=== PATIENT | male | born 1965 | race Caucasian/White ===

== ENCOUNTER 2017-07-25 13:41 | Emergency (ER) | payer SELFPAY ==
[2017-07-25] MEDS ORDERED: HYDROmorphONE/DILAUDID 1 MG/ML INJ IVP ONE ×3 (15:20→17:58)
[2017-07-25] MEDS ORDERED: ONDANSETRON 4 MG/2 ML VIAL IVP ONE (15:20)
[2017-07-25] MEDS ORDERED: NS 1,000 ML IV ONE (15:20)
--- NOTE | 2017-07-25 15:25 | EDPHY ---
H & P Stated Complaint: abdominal pain N/V/D Time Seen by Provider: 07/25/17 14:58 HPI/ROS: CHIEF COMPLAINT: Abdominal pain HISTORY OF PRESENT ILLNESS: This is a 51-year-old male visiting [place]. He has a history of diverticulitis and is status post partial colectomy. He presents today with 24 hours of left lower quadrant crampy abdominal pain, distention, vomiting, and diarrhea. He has not seen blood in his stool. All of this is consistent with his previous bouts of diverticulitis. His last bout was a few months ago. He is typically treated with ciprofloxacin and Flagyl orally, once he has the pain and vomiting under control. He denies recent fever. No new urinary symptoms but he reports long-standing difficulty initiating his urinary stream. REVIEW OF SYSTEMS: A ten point review of systems was performed and is negative with the exception of the items mentioned in the HPI. Past medical history: 1. Diabetes mellitus type 2 on insulin 2. Depression 3. Diverticulitis Past surgical history: 1. Partial colectomy 2. Left knee replacement 3. Achilles tendon repair 4. Cholecystectomy Social history: He lives in [place]. 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 He does not use tobacco, alcohol, or illicit drugs. General Appearance: Alert. Vital signs reviewed. Blood pressure 163/115. Eyes: Pupils equal and round, no conjunctival injection, no discharge. Anicteric. ENT, Mouth: Mucous membranes are slightly dry, no oropharyngeal erythema or edema. Neck: No lymphadenopathy, supple. Respiratory: Lungs are clear to auscultation; no wheezes, rales, or rhonchi. Cardiovascular: Regular rate and rhythm; no murmur, rub, or gallop. Gastrointestinal: Abdomen is obese, soft and tender in the left lower quadrant , no appreciable masses or organomegaly, bowel sounds present. Skin: Warm and dry, no rashes on exposed skin, normal color. Back: Nontender to palpation over the thoracolumbar spine. No CVAT. Extremities: No lower extremity edema, no calf tenderness or swelling. Neurological: Alert and oriented. Moving all four extremities easily and equally. Psychiatric: Normal affect. - Personal History Current Tetanus/Diphtheria Vaccine: Yes Current Tetanus Diphtheria and Acellular Pertussis (TDAP): Yes Tetanus Vaccine Date: < 10 years - Medical/Surgical History Hx Asthma: No Hx Chronic Respiratory Disease: No Hx Diabetes: No Hx Cardiac Disease: No Hx Renal Disease: No Hx Cirrhosis: No Hx Alcoholism: No Hx HIV/AIDS: No Hx Splenectomy or Spleen Trauma: No Other PMH: depression, anxiety, DM 2 - Social History Smoking Status: Never smoked Constitutional: Initial Vital Signs Temperature (C) 37 C 07/25/17 13:45 Heart Rate 98 07/25/17 13:45 Respiratory Rate 20 07/25/17 13:45 Blood Pressure 163/115 H 07/25/17 13:45 O2 Sat (%) 99 07/25/17 13:45 O2 Delivery Mode Room Air Allergies/Adverse Reactions: dicyclomine [From Bentyl] Allergy (Verified 07/26/17 09:53) fentanyl Allergy (Verified 07/26/17 09:53) ketamine Allergy (Verified 07/26/17 09:53) metoclopramide [From Reglan] Allergy (Verified 07/26/17 09:53) NSAIDS (Non-Steroidal Anti-Inflamma Allergy (Verified 07/26/17 09:53) Home Medications: Medication Instructions Recorded Insulin Aspart [novoLOG] 10 units SQ TIDMEAL 07/25/17 Insulin Glargine [Lantus 100 60 units SC HS 07/25/17 UNITS/ML (*)] QUEtiapine FUMARATE [Seroquel 100 100 mg PO BID 07/25/17 mg (*)] buPROPion SR [Wellbutrin 150mg SR 150 mg PO HS 07/25/17 (*)] clonazePAM [Klonopin (*)] 0.5 mg PO TID PRN 07/25/17 Venlafaxine Xr [Effexor Xr 75MG 150 mg PO BID 07/26/17 (*)] Medical Decision Making - Diagnostics Imaging: Discussed imaging studies w/ supervisor production managing Radiologist, I viewed and interpreted images myself ED Course/Re-evaluation: 51-year-old male with history of diverticulitis who presents with left lower quadrant pain. After 1.5 mg of Dilaudid and Zofran he continues to complain of left lower quadrant pain. He was re-examined at 4:15 p.m.. At that time he does have left lower quadrant tenderness. He has had success with Dilaudid in the past but tells me that he has had no pain relief today. Will add morphine. 1753- I reassessed this patient. He is experiencing trouble urinating. I am ordering a urinalysis to check for a kidney stone and 0.5 mg Dilaudid for continued pain. 1899: The patient has continued to request pain medication during his for our emergency department stay. He has been examined serially and there has been no change in his examination. 1955- I spoke with the hospitalist service regarding admission. Hospitalist service will consider admission following a diagnostic contrast CT. Initially, I had hoped to avoid a CT scan in this gentleman who reports multiple scans in the past. However, he has not achieved pain relief with relatively large doses of opiate pain medication. He has not had vomiting while in the department. He has not had a diarrheal stool. No evidence of urinary tract infection. No hematuria and I doubt that this is a kidney stone. I am concerned that this patient might be exhibiting drug-seeking behavior. He told me early on that others have thought he was a drug seeker. Contrast CT ordered. 2139- I spoke with Dr. Estela Li, radiologist, regarding his CT. The CT shows no signs of diverticulitis, he does have diverticulosis and some constipation. 2203- Reassessed patient and discussed imaging findings. He is sitting up watching TV. His WBC is low at 3.28. He says he will take a cab to a hotel tonight. He has received a total of 2mg IV Dilaudid and 10mg IV morphine while here. He is asking for "one more shot" of pain medication before he leaves as well as a few pills of clonazepam. He continues to ask for scripts for pain medication, but says he understands that he will not receive scripts here and will follow up with his PCP. Return precautions given. He had continued high blood pressure readings while in the department. He is aware of this. He is aware of the importance of having these followed up. He is also aware of his high blood sugar. He has tolerated PO in the department. My final impression is that he is, in fact, drug-seeking. Differential Diagnosis: Abdominal pain including but not limited to drug-seeking behavior, appendicitis , bowel obstruction, diverticulitis, gastritis, kidney stone, and urinary tract infection. - Data Points Laboratory Results: Laboratory Results 07/25/17 15:10 07/25/17 15:10 Medications Given: Discontinued Medications Diphenhydramine HCl (Benadryl Injection) 25 mg IVP EDNOW ONE Stop: 07/25/17 16:48 Last Admin: 07/25/17 16:56 Dose: 25 mg Diphenhydramine HCl (Benadryl Injection) 25 mg IVP EDNOW ONE Stop: 07/25/17 20:56 Last Admin: 07/25/17 20:58 Dose: 25 mg Hydromorphone HCl (Dilaudid) 1 mg IVP EDNOW ONE Stop: 07/25/17 15:21 Last Admin: 07/25/17 15:25 Dose: 1 mg Hydromorphone HCl (Dilaudid) 0.5 mg IVP EDNOW ONE Stop: 07/25/17 16:04 Last Admin: 07/25/17 16:10 Dose: 0.5 mg Hydromorphone HCl (Dilaudid) 0.5 mg IVP EDNOW ONE Stop: 07/25/17 17:59 Last Admin: 07/25/17 18:12 Dose: 0.5 mg Sodium Chloride (Ns) 1,000 mls @ 0 mls/hr IV EDNOW ONE; Wide Open PRN Reason: Protocol Stop: 07/25/17 15:21 Last Admin: 07/25/17 15:25 Dose: 1,000 mls Lorazepam (Ativan 1 Mg Prepack#4) 1 btl TAKEHOME EDNOW ONE Stop: 07/25/17 22:12 Last Admin: 07/25/17 22:23 Dose: 1 btl Morphine Sulfate (Morphine) 6 mg IVP EDNOW ONE Stop: 07/25/17 16:23 Last Admin: 07/25/17 16:34 Dose: 6 mg Morphine Sulfate (Morphine) 4 mg IVP EDNOW ONE Stop: 07/25/17 19:57 Last Admin: 07/25/17 19:58 Dose: 4 mg Ondansetron HCl (Zofran) 4 mg IVP EDNOW ONE Stop: 07/25/17 15:21 Last Admin: 07/25/17 15:26 Dose: 4 mg Departure - Departure Disposition: Home, Routine, Self-Care Clinical Impression: Abdominal pain Qualifiers: Abdominal location: left lower quadrant Qualified Code(s): R10.32 - Left lower quadrant pain Condition: Good Instructions: Chronic Abdominal Pain (ED) Additional Instructions: Follow up with your doctor in the next week. Return to the ED for worsening of condition. Referrals: [facility],. [Clinic] - As per Instructions Report Scribed for: Suha Barnett Report Scribed by: Cecy Acosta Date of Report: 07/25/17 Time of Report: 18:55 Physician Review and Approval Statement: 07/27/17 11:50 Portions of this note were transcribed by the medical advisor. I, Dr. Suha Barnett, personally performed the history, physical exam, and medical decision- making; and confirmed the accuracy of the information in the transcribed note.
[2017-07-25 15:35] LABS: % IMMATURE GRANULYOCYTES 0.6 % (0.0-1.1); ABSOLUTE IMMATURE GRANULOCYTES 0.02 10^3/uL (0.00-0.10); ADD DIFF? NO; ADD MORPH? NO; ADD SCAN? NO; ATYPICAL LYMPHOCYTE FLAG 30 (0-99); FRAGMENT RBC FLAG 0 (0-99); HEMATOCRIT 33.5 % (40.0-51.0); HEMOGLOBIN 11.1 g/dL (13.7-17.5); LEFT SHIFT FLG 0 (0-99); LIPEMIA HEMOLYSIS FLAG 80 (0-99); MEAN CELL HEMOGLOBIN 25.6 pg (27.9-34.1); MEAN CELL HEMOGLOBIN CONCENTR. 33.1 g/dL (32.4-36.7); MEAN CELL VOLUME 77.2 fL (81.5-99.8); PLATELET CLUMPS FLAG 0 (0-99); PLATELET COUNT 205 10^3/uL (150-400); RED BLOOD CELL COUNT 4.34 10^6/uL (4.40-6.38); RED CELL DISTRIBUTION WIDTH 15.2 % (11.5-15.2)
[2017-07-25 16:07] LABS: ANION GAP 14 mEq/L (8-16); CALCIUM 8.9 mg/dL (8.5-10.4); CARBON DIOXIDE 21 mEq/l (22-31); CHLORIDE 100 mEq/L (97-110); CREATININE 0.6 mg/dL (0.7-1.3); GLOMERULAR FILTRATION RATE > 60; GLUCOSE 398 mg/dL (70-100); POTASSIUM 3.5 mEq/L (3.5-5.2); SODIUM 135 mEq/L (134-144)
[2017-07-25 18:38] LABS: COLOR PALE YELLOW; LEUKOCYTE ESTERASE,URINE NEGATIVE (NEGATIVE); NITRITE,URINE NEGATIVE (NEGATIVE)
[2017-07-25 18:42] LABS: MUCUS TRACE /lpf (NONE-1+)
[2017-07-25] MEDS ORDERED: IOPAMIDOL (ISOVUE-300) 100 ML BTL ONE (20:08)
[2017-07-25] MEDS ORDERED: LORAZEPAM 1 MG PREPACK#4 BTL TAKEHOME ONE (22:11)
[2017-07-25 22:24] VITALS: BP 153/109; PULSE 89; RESP 14; TEMP 98.6; O2SAT 97
== END 2017-07-25 22:32 | disposition home or self-care (01) ==
DX: R10.32 Left lower quadrant pain (principal); E11.9 Type 2 diabetes mellitus without complications; E86.9 Volume depletion, unspecified; Z79.4 Long term (current) use of insulin; Z90.49 Acquired absence of other specified parts of digestive tract
CPT/HCPCS: 96374; J1170; J1200; J2405; Q9967

== ENCOUNTER 2017-07-26 09:45 | Observation (INO) | payer SELFPAY ==
--- NOTE | 2017-07-26 10:08 | EDPHY ---
H & P Stated Complaint: llq abd pain/hx diverticulitis seen yesterday - Personal History Current Tetanus/Diphtheria Vaccine: Yes Tetanus Vaccine Date: < 10 years - Medical/Surgical History Hx Asthma: No Hx Chronic Respiratory Disease: No Hx Diabetes: Yes Hx Cardiac Disease: No Hx Renal Disease: No Hx Cirrhosis: No Hx Alcoholism: No Hx HIV/AIDS: No Hx Splenectomy or Spleen Trauma: No Other PMH: depression, anxiety, DM 2 - Social History Smoking Status: Never smoked Time Seen by Provider: 07/26/17 09:58 HPI/ROS: CHIEF COMPLAINT: Continued left lower quadrant abdominal pain HISTORY OF PRESENT ILLNESS: 51-year-old male history of diabetes, history of diverticulitis, remote history of partial colectomy, visiting from [place], seen emergency department yesterday afternoon for complaints of left lower quadrant pain, distention, vomiting, diarrhea at which point he had CT imaging showing constipation, no evidence of diverticulitis and/or perforation or abscess, treated with analgesia and discharged. He returns to the emergency department this morning complaining of continued pain, unrelieved at home, continued nausea. No fever no chills PRIMARY CARE PROVIDER: out of state, in [place] REVIEW OF SYSTEMS: A ten point review of systems was performed and is negative with the exception of the items mentioned in the HPI PAST MEDICAL & SURGICAL HISTORY: Remote history of partial colectomy, left knee arthroplasty. Diabetes. Depression. Diverticulitis. SOCIAL HISTORY: nonsmoker. No alcohol or drug use. 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 PHYSICAL EXAM (Prior to examination, patient consented to physical exam, hands were washed and my usual and customary physical exam procedures followed) 1) GENERAL: Well-developed, well-nourished, alert and oriented. Appears uncomfortable . 2) HEAD: Normocephalic, atraumatic 3) HEENT: Pupils equal, round, reactive to light bilaterally. Sclera anicteric. Nasopharynx, oropharynx, clear, no lesions. Ears bilaterally with normal tympanic membranes. 4) NECK: Full range of motion, no meningeal signs. 5) LUNGS: Clear auscultation bilaterally, no wheezes, no rhonchi, no retractions. 6) HEART: Regular rate and rhythm, no murmur, no heave, no gallop. 7) ABDOMEN: No guarding, no rebound, no focal tenderness, negative McBurney's, negative Lau's, negative Rovsing's, negative peritoneal sign, 8) MUSCULOSKELETAL: Moving all extremities, no focal areas of tenderness, no obvious trauma. No peripheral edema or discoloration. 9) BACK: No CVA tenderness, no midline vertebral tenderness, no fluctuance, no step-off, no obvious trauma, no visual or palpable abnormality. 10) SKIN: No rash, no petechiae. 11) : Normal male external genitalia bilateral testicles nontender , bilateral cremasteric reflex present DIFFERENTIAL DIAGNOSIS: in no particular order including but not limited to acute diverticulitis, constipation, intra-abdominal abscess, intestinal perforation (Ameena,Lee Ann Rowe) Constitutional: Initial Vital Signs Temperature (C) 36.9 C 07/26/17 09:53 Heart Rate 84 07/26/17 09:53 Respiratory Rate 18 07/26/17 09:53 Blood Pressure 155/99 H 07/26/17 09:53 O2 Sat (%) 99 07/26/17 09:53 O2 Delivery Mode Room Air Allergies/Adverse Reactions: dicyclomine [From Bentyl] Allergy (Verified 07/26/17 09:53) fentanyl Allergy (Verified 07/26/17 09:53) ketamine Allergy (Verified 07/26/17 09:53) metoclopramide [From Reglan] Allergy (Verified 07/26/17 09:53) NSAIDS (Non-Steroidal Anti-Inflamma Allergy (Verified 07/26/17 09:53) Home Medications: Medication Instructions Recorded Insulin Aspart [novoLOG] 10 units SQ TIDMEAL 07/25/17 Insulin Glargine [Lantus 100 60 units SC HS 07/25/17 UNITS/ML (*)] QUEtiapine FUMARATE [Seroquel 100 100 mg PO BID 07/25/17 mg (*)] buPROPion SR [Wellbutrin 150mg SR 150 mg PO HS 07/25/17 (*)] clonazePAM [Klonopin (*)] 0.5 mg PO TID PRN 07/25/17 Venlafaxine Xr [Effexor Xr 75MG 150 mg PO BID 07/26/17 (*)] Medical Decision Making - Diagnostics Imaging Results: Imaging Impressions Abdomen X-Ray 07/26/17 10:12 Impression: 1. Nonspecific bowel gas pattern without distention. ED Course/Re-evaluation: 10:00 a.m.: Reviewed this patient's emergency department report and CT of the abdomen from last evening. He has no evidence of diverticulitis or perforation at that time. Currently he is quite tender to palpation left lower quadrant. Plan will be laboratory studies, IV, pain control and likely admission. 11:16 a.m.: Nursing staff has been unable to establish IV access through multiple access sites. Plan will be PICC line placement 11:30 a.m.: PICC line has been or in this patient, will be delayed due to current census in the interventional radiology suite. With the patient's complaints of continued left lower quadrant pain, I have discussed this case with Dr. Armani Meza in the ER, secondary supervising physician and we recommended admission. No CT imaging at this time as he had one performed yesterday afternoon. 11:40 a.m.: Phone consultation with hospitalist selene Chavez to Dr. Painting. 12:40 p.m.: The abdominal x-ray was delayed as the patient was declining this until he received IM pain medication. Currently he is at the interventional radiology suite receiving PICC line (Lee Ann Lindquist) I did not see this patient while he was in the emergency department. However his care was discussed with the PA while the patient was in the department. I agree with treatment plan and management (Armani Meza) - Data Points Medications Given: Clonazepam (Klonopin) 0.5 mg PO TID PRN PRN Reason: Anxiety Stop: 01/22/18 13:59 Last Admin: 07/26/17 15:18 Dose: 0.5 mg Hydromorphone HCl (Dilaudid) 0.4 mg IVP Q4HRS PRN PRN Reason: Pain, Severe Unable to Take PO Stop: 08/05/17 13:39 Last Admin: 07/26/17 14:00 Dose: 0.4 mg Discontinued Medications Hydromorphone HCl (Dilaudid) 1 mg IVP EDNOW ONE Stop: 07/26/17 10:12 Last Admin: 07/26/17 15:02 Dose: Not Given Hydromorphone HCl (Dilaudid) 1 mg IM EDNOW ONE Stop: 07/26/17 12:17 Last Admin: 07/26/17 12:22 Dose: 1 mg Sodium Chloride (Ns) 1,000 mls @ 0 mls/hr IV ONCE ONE PRN Reason: Wide Open Stop: 07/26/17 10:12 Last Admin: 07/26/17 13:01 Dose: 1,000 mls Ondansetron HCl (Zofran) 4 mg IVP EDNOW ONE Stop: 07/26/17 10:12 Last Admin: 07/26/17 12:23 Dose: 4 mg Departure - Departure Disposition: [facility] Inpatient Acute Clinical Impression: Abdominal pain Qualifiers: Abdominal location: left lower quadrant Qualified Code(s): R10.32 - Left lower quadrant pain Condition: Fair
[2017-07-26] MEDS ORDERED: ONDANSETRON 4 MG/2 ML VIAL IVP ONE (10:11)
[2017-07-26] MEDS ORDERED: HYDROmorphONE/DILAUDID 1 MG/ML INJ IVP ONE ×3 (10:11→16:06)
[2017-07-26] MEDS ORDERED: NS 1,000 ML IV ONE (10:11)
[2017-07-26] MEDS ORDERED: ALTEPLASE 2 MG VIAL IVP PRN (11:21)
[2017-07-26] MEDS ORDERED: HYDROmorphONE/DILAUDID 1 MG/ML INJ ONE (12:16)
[2017-07-26] MEDS ORDERED: HYDROmorphONE/DILAUDID 1 MG/ML INJ IM ONE (12:16)
[2017-07-26] MEDS ORDERED: ONDANSETRON 4 MG/2 ML VIAL ONE (12:17)
[2017-07-26] MEDS ORDERED: ONDANSETRON DISINTEGRATING 4 MG TAB PO PRN (12:50)
[2017-07-26] MEDS ORDERED: ACETAMINOPHEN 325 MG TAB PO PRN (12:50)
[2017-07-26] MEDS ORDERED: ONDANSETRON 4 MG/2 ML VIAL IVP PRN (12:50)
[2017-07-26] MEDS ORDERED: HYDROmorphONE/DILAUDID 1 MG/ML INJ IVP PRN ×2 (13:40→15:45)
[2017-07-26] MEDS ORDERED: NS 1,000 ML IV SCH (13:45)
[2017-07-26] MEDS ORDERED: D50W 25 GM/50 ML SYR IVP PRN (13:54)
[2017-07-26] MEDS ORDERED: D10W 250 ML PRN HYPOGLYCEMIA IV (14:30)
[2017-07-26 14:37] LABS: % IMMATURE GRANULYOCYTES 0.4 % (0.0-1.1); ABSOLUTE IMMATURE GRANULOCYTES 0.01 10^3/uL (0.00-0.10); ADD DIFF? NO; ADD MORPH? NO; ADD SCAN? NO; ATYPICAL LYMPHOCYTE FLAG 10 (0-99); FRAGMENT RBC FLAG 0 (0-99); HEMATOCRIT 30.4 % (40.0-51.0); HEMOGLOBIN 10.1 g/dL (13.7-17.5); LEFT SHIFT FLG 0 (0-99); LIPEMIA HEMOLYSIS FLAG 80 (0-99); MEAN CELL HEMOGLOBIN 25.5 pg (27.9-34.1); MEAN CELL HEMOGLOBIN CONCENTR. 33.2 g/dL (32.4-36.7); MEAN CELL VOLUME 76.8 fL (81.5-99.8); MEAN PLATELET VOLUME 9.6 fL (8.7-11.7); PLATELET CLUMPS FLAG 0 (0-99); PLATELET COUNT 178 10^3/uL (150-400); RED BLOOD CELL COUNT 3.96 10^6/uL (4.40-6.38)
[2017-07-26] MEDS ORDERED: diphenhydrAMINE 25 MG CAP PO PRN (14:54)
[2017-07-26 15:02] LABS: ALANINE AMINOTRANSFERASE 27 IU/L (21-72); ALBUMIN 3.3 g/dL (3.5-5.0); ALKALINE PHOSPHATASE 85 IU/L (38-126); ANION GAP 8 mEq/L (8-16); ASPARTATE AMINOTRANSFERASE 15 IU/L (17-59); BILIRUBIN,TOTAL 0.4 mg/dL (0.1-1.4); BILIRUBIN-CONJUGATED 0.3 mg/dL (0.0-0.5); BILIRUBIN-UNCONJUGATED 0.1 mg/dL (0.0-1.1); CALCIUM 8.6 mg/dL (8.5-10.4); CARBON DIOXIDE 28 mEq/l (22-31); CHLORIDE 102 mEq/L (97-110); CREATININE 0.5 mg/dL (0.7-1.3); GLOMERULAR FILTRATION RATE > 60; GLUCOSE 227 mg/dL (70-100); POTASSIUM 3.2 mEq/L (3.5-5.2); SODIUM 138 mEq/L (134-144); TOTAL PROTEIN 5.7 g/dL (6.3-8.2)
[2017-07-26] MEDS: clonazePAM 0.5 MG TAB PO PRN ×2 (15:18→20:59)
--- NOTE | 2017-07-26 15:31 | GHP ---
[f rep st] HISTORY AND PHYSICAL DATE OF ADMISSION: 07/26/2017 CHIEF COMPLAINT: Left lower abdominal pain. HISTORY OF PRESENT ILLNESS: A 51-year-old male with history of diverticulitis status post partial co lectomy, type 2 diabetes, depression/anxiety, presenting with persistent abdominal pain. He is here visiting from [place] and was actually seen in the ER last night for left lower quadrant pain, di stention, vomiting, diarrhea. CT abdomen and pelvis showed constipation, diverticulosis, but no evid ence of abscess or diverticulitis. He was treated with opioids and discharged home. He returns today due to continual pain. He has had continued nausea, vomiting, nonbloody. Denies fe vers or chills. He reports some sweats. Denies any ill contacts. Reports having a difficult time u rinating. It is hard to get a stream going. He thinks it is due to his prostate. He does report his depression has been less controlled recently. REVIEW OF SYSTEMS: I completed a 10-point review of systems. Negative except as noted in HPI. PAST MEDICAL HISTORY: Diverticulitis, type 2 diabetes, depression/anxiety. PAST SURGICAL HISTORY: Partial colectomy secondary to diverticulitis, tonsillectomy, ventral hernia, cholecystectomy, appendectomy, vasectomy, left TKA, Achilles tendon repair. 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 Denies any alcohol, tobacco, or illicits. PHYSICAL EXAM: VITAL SIGNS: Temperature 36.9, blood pressure 165/106, heart rate in the 80s, respir ations 16, 98% on room air. GENERAL: Lying in bed. No acute distress. HEENT: PERRLA. Very dry mu cous membranes. CV: Regular rate and rhythm. No murmurs, gallops, rubs. LUNGS: Clear to ausculta tion. No wheezing or crackles. ABDOMEN: Soft. Bilateral tenderness in lower quadrants with volunt shadi guarding. No rebound. Positive bowel sounds throughout. : No suprapubic tenderness. MUSCUL OSKELETAL: 5/5 upper lower extremity strength. NEURO: 2-12 intact. PSYCH: Alert and oriented x3. LABORATORY DATA: WBC is 2.6, hemoglobin 10, hematocrit is 30, platelets 178. Lactate is 1.3. CMP i s pending as well as lipase. UA done yesterday was negative. Abdominal x-ray personally reviewed by me today showing constipation. Abdominal CT, 07/25/2017: Moderate constipation in the ascending colon and cecum. Granulomas in the liver and spleen. Post cholecystectomy. Small cyst in the inferior pole of the right kidney. Dive rticulosis without diverticulitis. ASSESSMENT AND PLAN: 1. Acute abdominal pain: Query viral infection versus constipation. CT yesterday was reassuring. Lactate is normal today. X-ray upon my review showing constipation. Awaiting formal read. Will mon itor overnight for intravenous hydration, intravenous opioids, and antiemetics. We will check a GI P CR. Awaiting lipase and LFTs. 2. Uncontrolled diabetes. Glucose yesterday was 398 and it is pending now. We will reduce home gla rgine dose with decreased p.o. intake. 3. Depression/anxiety. Resume home medications. 4. Diet: Clear, diabetic. 5. Deep venous thrombosis prophylaxis with sequential compression devices. DISPOSITION: The patient warrants observation admission, given acute abdominal pain, intractable morenita sea and vomiting, requiring IV fluids, IV antiemetics, and opioids. /[id number]/MODL
[2017-07-26 15:40] LABS: COLOR PALE YELLOW; LEUKOCYTE ESTERASE,URINE NEGATIVE (NEGATIVE); NITRITE,URINE NEGATIVE (NEGATIVE)
[2017-07-26] MEDS ORDERED: POTASSIUM CL 20 MEQ TAB PO ONE (15:44)
[2017-07-26] MEDS ORDERED: INSULIN GLARGINE 100 UNITS/ML SYRINGE SC SCH ×2 (15:45→21:00)
[2017-07-26 15:53] LABS: RBC,URINE NONE SEEN /hpf (0-3)
[2017-07-26] MEDS: INSULIN LISPRO 100 UNIT/ML SC SCH (17:14)
[2017-07-26] MEDS ORDERED: hydrALAZINE 20 MG/ML VIAL IVP PRN (18:23)
[2017-07-26] MEDS: HYDROmorphONE/DILAUDID 1 MG/ML INJ IVP PRN (18:23)
[2017-07-26] MEDS: VENLAFAXINE XR 75 MG CAP PO SCH (20:50)
[2017-07-26] MEDS: QUEtiapine FUMARATE 100 MG TAB PO SCH (20:50)
[2017-07-26] MEDS ORDERED: buPROPion SR 150 MG TAB PO SCH (21:00)
[2017-07-27] MEDS: HYDROmorphONE/DILAUDID 1 MG/ML INJ IVP PRN ×2 (00:02→04:55)
[2017-07-27 05:10] LABS: HEMATOCRIT 32.8 % (40.0-51.0); HEMOGLOBIN 10.8 g/dL (13.7-17.5); MEAN CELL HEMOGLOBIN 25.2 pg (27.9-34.1); MEAN CELL HEMOGLOBIN CONCENTR. 32.9 g/dL (32.4-36.7); MEAN CELL VOLUME 76.6 fL (81.5-99.8); RED BLOOD CELL COUNT 4.28 10^6/uL (4.40-6.38); RED CELL DISTRIBUTION WIDTH 15.2 % (11.5-15.2)
[2017-07-27 05:42] LABS: ANION GAP 7 mEq/L (8-16); CALCIUM 8.9 mg/dL (8.5-10.4); CARBON DIOXIDE 28 mEq/l (22-31); CHLORIDE 103 mEq/L (97-110); CREATININE 0.6 mg/dL (0.7-1.3); GLOMERULAR FILTRATION RATE > 60; GLUCOSE 187 mg/dL (70-100); POTASSIUM 3.2 mEq/L (3.5-5.2); SODIUM 138 mEq/L (134-144)
[2017-07-27] MEDS ORDERED: PROTOCOL MAGNESIUM 1 DOSE IV PRN (06:07)
[2017-07-27] MEDS ORDERED: PROTOCOL K PHOSPHATE 1 DOSE IV PRN (06:07)
[2017-07-27] MEDS ORDERED: PROTOCOL POTASSIUM 1 DOSE MISC PRN (06:07)
[2017-07-27 06:39] LABS: MAGNESIUM 1.9 mg/dL (1.6-2.3)
[2017-07-27] MEDS ORDERED: POTASSIUM CL 10 MEQ TAB PO ONE (07:16)
[2017-07-27 08:07] VITALS: RESP 16
[2017-07-27] MEDS ORDERED: oxyCODONE IR 5 MG TAB PO PRN (08:40)
[2017-07-27] MEDS: INSULIN LISPRO 100 UNIT/ML SC SCH ×2 (09:03→13:36)
[2017-07-27] MEDS: VENLAFAXINE XR 75 MG CAP PO SCH (09:03)
[2017-07-27] MEDS: QUEtiapine FUMARATE 100 MG TAB PO SCH (09:03)
[2017-07-27] MEDS: clonazePAM 0.5 MG TAB PO PRN (09:10)
--- NOTE | 2017-07-27 11:35 | ASMTCMCOM ---
CM Note CM Note Notes: Spoke w/RN, anticipate pt will dc independent when medically stable. CM available for any changes. Date Signed: 07/27/2017 11:34 AM Electronically Signed By:Alpa Edge RN
[2017-07-27 12:38] VITALS: BP 148/101; PULSE 93; TEMP 98.5; O2SAT 96
--- NOTE | 2017-07-27 14:11 | HOSPPROG ---
Hospitalist Progress Note Assessment/Plan: #Acute abdominal pain: query if due to constipation. No abscess or diverticulitis on CT. Lactate normal. Tolerating food today #Microcytic anemia: rec outpatient scope #Anxiety/depression: home meds #Hypokalemia: repleted #Accelerated HTN: not on BP meds at home. Start low-dose Norvasc. FU with PCP next week #DC today Subjective: no N/V/D. Pain improved Objective: Vital Signs Temp Pulse Resp BP Pulse Ox 36.9 C 93 16 148/101 H 96 07/27/17 12:36 07/27/17 12:36 07/27/17 12:36 07/27/17 12:36 07/27/17 12:36 Laboratory Results 07/27/17 05:01 07/27/17 05:01 07/26/17 07/27/17 07/28/17 05:59 05:59 05:59 Intake Total 1440 Output Total 750 1000 Balance 690 -1000 - Physical Exam Constitutional: no apparent distress Eyes: PERRL Ears, Nose, Mouth, Throat: moist mucous membranes, hearing normal Cardiovascular: regular rate and rhythym, no murmur, rub, or gallop Respiratory: no respiratory distress, no rales or rhonchi Gastrointestinal: normoactive bowel sounds, other (left LQ TTP improved, no TTP on right today), No distension Genitourinary: no bladder fullness Skin: warm Musculoskeletal: full muscle strength Neurologic: AAOx3, CN II-XII Intact Psychiatric: interacting appropriately, flat affect ICD10 Worksheet Patient Problems: Problems Problem Status Onset Abdominal pain Acute Abdominal pain Acute
--- NOTE | 2017-07-27 16:40 | GDS ---
[f rep st] DISCHARGE SUMMARY DISCHARGE DIAGNOSES: 1. Acute abdominal pain. 2. Hypokalemia. 3. History of diverticulitis, status post partial colectomy. 4. Microcytic anemia. 5. Anxiety/depression. 6. Accelerated hypertension. 7. Type 2 diabetes. HISTORY OF PRESENT ILLNESS: A 51-year-old male with history of prior diverticulitis, status post colectomy, type 2 diabetes, depression/anxiety, presenting with persistent abdominal pain. 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 CT abdomen showed constipation, diverticulosis, but no evidence of abscess or diverticulitis. He was treated with opioids and discharged home. He presented again yesterday due to persistent pain. He had continued nausea and nonbloody diarrhea. Denied fevers or chills but had some sweats. No ill contacts. HOSPITAL COURSE BY PROBLEM: 1. Acute abdominal pain: Differential included viral infection versus constipation. CT 07/25 was negative for abscess or diverticulitis. Lactate was reassuring 1.6. Pain is improved today. He is tolerating p.o. I tried to obtain stool for PCR, but he has not had any diarrhea here. I advised a low- fiber diet and to follow up with his PCP. 2. Type 2 diabetes: Resume home glargine now that he is taking p.o. 3. Depression/anxiety: Resume home medications. 4. Accelerated hypertension: He does not take medication at home but has been persistently elevated here. I started low-dose Norvasc and recommend that he follows up with his PCP next week for repeat. 5. Microcytic anemia: He states he has had a colonoscopy within the last year but cannot recall where. I advised him to follow up to ensure that this was normal. If not, then he should repeat. No evidence of bleeding here. DISPOSITION: Patient is stable for discharge home DIET: Low fiber, advance as tolerated number. NEW MEDICATIONS: Norvasc 5 mg. FOLLOWUP: With primary care physician for blood pressure, as well as repeat CBC. /[id number]/MODL MTDD
--- NOTE | 2017-07-27 17:44 | ASDISCHSUM ---
Discharge Information Plan Status:Home with No Needs Medically Cleared to Leave: Discharge Date:07/27/2017 03:10 PM CM D/C Disposition:Home, Routine, Self-Care ADT D/C Disposition:Home, Routine, Self-Care Projected Discharge Date:07/27/2017 03:10 PM Transportation at D/C:Self Discharge Delay Reason: Follow-Up Date:07/27/2017 03:10 PM Discharge Slot: Final Diagnosis: Placement Information Patient Contact Information Contact Name:CARLA Relationship: Address: Home Phone: Work Phone: City: Alternate Phone: State/[place] Code: Email: Financial Information Financial Class:Self-Pay Primary Plan Desc:SELF PAY Primary Plan Number: Secondary Plan Desc: Secondary Plan Number: Assessment Information [facility] CM Progress Note CM Note CM Note Notes: Spoke w/RN, anticipate pt will dc independent when medically stable. CM available for any changes. Date Signed: 07/27/2017 11:34 AM Electronically Signed By:Alpa Edge RN Intervention Information
== END 2017-07-27 15:10 | disposition home or self-care (01) ==
LOC: F3E 13:24
PROVIDERS: ADMIT Internal Medicine; ATTEND Internal Medicine
PROC: 02HV33Z Insertion of Infusion Device into Superior Vena Cava, Percutaneous Approach (ICD-10-PCS; principal; 2017-07-26)
DX: R10.32 Left lower quadrant pain (principal); E87.6 Hypokalemia; K59.00 Constipation, unspecified; F41.8 Other specified anxiety disorders; E11.9 Type 2 diabetes mellitus without complications; Z90.49 Acquired absence of other specified parts of digestive tract; Z79.4 Long term (current) use of insulin; D50.9 Iron deficiency anemia, unspecified; I10 Essential (primary) hypertension
CPT/HCPCS: 96374; C1751; G0378; J0360; J1170; J1815; J2405

== ENCOUNTER 2017-07-31 20:06 | Emergency (ER) | payer SELFPAY ==
[2017-07-31] MEDS ORDERED: HYDROmorphONE/DILAUDID 1 MG/ML INJ IVP ONE ×2 (21:23→21:58)
[2017-07-31] MEDS ORDERED: ONDANSETRON 4 MG/2 ML VIAL IVP ONE (21:23)
[2017-07-31] MEDS ORDERED: NS 1,000 ML IV ONE (21:23)
[2017-07-31 21:29] LABS: % IMMATURE GRANULYOCYTES 0.6 % (0.0-1.1); ABSOLUTE IMMATURE GRANULOCYTES 0.02 10^3/uL (0.00-0.10); ADD DIFF? NO; ADD MORPH? NO; ADD SCAN? NO; ATYPICAL LYMPHOCYTE FLAG 10 (0-99); FRAGMENT RBC FLAG 0 (0-99); HEMATOCRIT 37.4 % (40.0-51.0); HEMOGLOBIN 13.1 g/dL (13.7-17.5); LEFT SHIFT FLG 0 (0-99); LIPEMIA HEMOLYSIS FLAG 90 (0-99); MEAN CELL VOLUME 74.2 fL (81.5-99.8); MEAN PLATELET VOLUME 9.6 fL (8.7-11.7); PLATELET CLUMPS FLAG 0 (0-99); PLATELET COUNT 257 10^3/uL (150-400); RED BLOOD CELL COUNT 5.04 10^6/uL (4.40-6.38)
[2017-07-31 21:34] LABS: ANION GAP 11 mEq/L (8-16); CALCIUM 9.6 mg/dL (8.5-10.4); CARBON DIOXIDE 26 mEq/l (22-31); CHLORIDE 97 mEq/L (97-110); CREATININE 0.6 mg/dL (0.7-1.3); GLOMERULAR FILTRATION RATE > 60; GLUCOSE 315 mg/dL (70-100); POTASSIUM 3.2 mEq/L (3.5-5.2); SODIUM 134 mEq/L (134-144)
[2017-07-31] MEDS ORDERED: LORazepam 2 MG/ML INJ IVP ONE (21:58)
--- NOTE | 2017-07-31 22:09 | EDPHY ---
H & P Stated Complaint: LLQ abd pain, L flank pain, N/V/D Time Seen by Provider: 07/31/17 20:56 HPI/ROS: CHIEF COMPLAINT: Left lower quadrant pain, right lower quadrant pain, distension. HISTORY OF PRESENT ILLNESS: 51-year-old male seen in the emergency department on 2 occasions last week and admitted for left lower quadrant abdominal pain presents with recurrent left lower quadrant abdominal pain. Patient reports that he was discharged approximately 6 days ago. He did relatively well until last night when he began to develop pain in the left lower quadrant. He also notes some distension. Nausea but no vomiting. No fevers. No diarrhea. Reports normal bowel movements. Of note the patient has had multiple abdominal surgeries. He has history of diverticulitis and had partial colectomy. Reports no prior history of bowel obstructions. No fevers or chills. No chest pain. No shortness of breath. No urinary complaints. REVIEW OF SYSTEMS: Aside from elements discussed in the HPI, a comprehensive 10-point review of systems was reviewed and is negative. PAST MEDICAL HISTORY: Diverticulitis, partial colectomy. SOCIAL HISTORY: Visiting from [place]. 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 He is staying with his family. VITAL SIGNS Reviewed by me. 159/119. 109 hr GENERAL: Well-developed, well-nourished, reports being anxious and having significant pain. HEENT: Atraumatic. Eyes: No icterus, no injection. Mouth: Dry mucous membranes. No erythema or lesions. Neck: supple with no adenopathy. LUNGS: Clear to auscultation bilaterally, no wheezes, rhonchi or rales. CARDIAC: Regular rate and rhythm, no rubs, murmurs or gallops. ABDOMEN: Soft, diffusely tender, tenderness is present most prominently in the lower quadrants. No guarding or rebound. Hyperactive bowel sounds no obvious distension. BACK: No CVA tenderness. EXTREMITIES: No trauma. Trace edema. NEURO: Alert and oriented, grossly nonfocal. SKIN: Warm and dry, no rash. PSYCHIATRIC: Normal mentation, no agitation. - Personal History Current Tetanus/Diphtheria Vaccine: Yes Current Tetanus Diphtheria and Acellular Pertussis (TDAP): Yes Tetanus Vaccine Date: < 10 years - Medical/Surgical History Hx Asthma: No Hx Chronic Respiratory Disease: No Hx Diabetes: Yes Hx Cardiac Disease: No Hx Renal Disease: No Hx Cirrhosis: No Hx Alcoholism: No Hx HIV/AIDS: No Hx Splenectomy or Spleen Trauma: No Other PMH: depression, anxiety, DM 2, - Social History Smoking Status: Never smoked Constitutional: Initial Vital Signs Temperature (C) 37.7 C 07/31/17 20:08 Heart Rate 109 H 07/31/17 20:08 Respiratory Rate 20 07/31/17 20:08 Blood Pressure 151/119 H 07/31/17 20:08 O2 Sat (%) 98 07/31/17 20:08 O2 Delivery Mode Room Air Allergies/Adverse Reactions: dicyclomine [From Bentyl] Allergy (Verified 07/31/17 20:11) fentanyl Allergy (Verified 07/31/17 20:11) ketamine Allergy (Verified 07/31/17 20:11) metoclopramide [From Reglan] Allergy (Verified 07/31/17 20:11) NSAIDS (Non-Steroidal Anti-Inflamma Allergy (Verified 07/31/17 20:11) Home Medications: Medication Instructions Recorded Insulin Aspart [novoLOG] 10 units SQ TIDMEAL 07/25/17 Insulin Glargine [Lantus 100 60 units SC HS 07/25/17 UNITS/ML (*)] QUEtiapine FUMARATE [Seroquel 100 100 mg PO BID 07/25/17 mg (*)] buPROPion SR [Wellbutrin 150mg SR 150 mg PO HS 07/25/17 (*)] clonazePAM [Klonopin (*)] 0.5 mg PO TID PRN 07/25/17 Venlafaxine Xr [Effexor Xr 75MG 150 mg PO BID 07/26/17 (*)] Amlodipine Besylate [Norvasc] 5 mg PO DAILY #30 tablet 07/27/17 Medical Decision Making ED Course/Re-evaluation: 51-year-old male presenting to the emergency department with recurrent abdominal pain. Patient was seen here twice last week and admitted with left lower quadrant discomfort. Eye examination today, the patient has significant tenderness to palpation, less so when auscultating with my stethoscope. Two-view plain a.m. abdominal x- ray was ordered to evaluate for potential signs of obstruction. This demonstrates moderate constipation by my reading. The patient has slightly low white count, but improved from previously. Of note his glucose is in the 300s. He received a L normal saline. He received Dilaudid and Zofran at his request. Reports this has improved his pain somewhat. Patient also asks me to provide Ativan as he has for gotten to take his clonidine this morning. Patient will be discharged to his family with instructions regarding constipation and instructed to use magnesium citrate. Take home prescriptions of narcotics were not provided. Differential Diagnosis: After obtaining the patient's history and performing an examination, differential diagnosis considered included but was not limited to diverticulitis , diverticulosis, bowel obstruction, constipation, drug-seeking behavior. - Data Points Laboratory Results: Laboratory Results 07/31/17 21:10 07/31/17 21:10 07/31/17 07/31/17 21:10 21:10 WBC 3.41 10^3/uL L 10^3/uL (3.80-9.50) RBC 5.04 10^6/uL 10^6/uL (4.40-6.38) Hgb 13.1 g/dL L g/dL (13.7-17.5) Hct 37.4 % L % (40.0-51.0) MCV 74.2 fL L fL (81.5-99.8) MCH 26.0 pg L pg (27.9-34.1) MCHC 35.0 g/dL g/dL (32.4-36.7) RDW 15.0 % % (11.5-15.2) Plt Count 257 10^3/uL 10^3/uL (150-400) MPV 9.6 fL fL (8.7-11.7) Neut % (Auto) 60.7 % % (39.3-74.2) Lymph % (Auto) 27.6 % % (15.0-45.0) Hyde % (Auto) 7.3 % % (4.5-13.0) Eos % (Auto) 2.6 % % (0.6-7.6) Baso % (Auto) 1.2 % % (0.3-1.7) Nucleat RBC Rel Count 0.0 % % (0.0-0.2) Absolute Neuts (auto) 2.07 10^3/uL 10^3/uL (1.70-6.50) Absolute Lymphs (auto) 0.94 10^3/uL L 10^3/uL (1.00-3.00) Absolute Monos (auto) 0.25 10^3/uL L 10^3/uL (0.30-0.80) Absolute Eos (auto) 0.09 10^3/uL 10^3/uL (0.03-0.40) Absolute Basos (auto) 0.04 10^3/uL 10^3/uL (0.02-0.10) Absolute Nucleated RBC 0.00 10^3/uL 10^3/uL (0-0.01) Immature Gran % 0.6 % % (0.0-1.1) Immature Gran # 0.02 10^3/uL 10^3/uL (0.00-0.10) Sodium 134 mEq/L mEq/L (134-144) Potassium 3.2 mEq/L L mEq/L (3.5-5.2) Chloride 97 mEq/L mEq/L (97-110) Carbon Dioxide 26 mEq/l mEq/l (22-31) Anion Gap 11 mEq/L mEq/L (8-16) BUN 2 mg/dL L mg/dL (7-23) Creatinine 0.6 mg/dL L mg/dL (0.7-1.3) Estimated GFR > 60 Glucose 315 mg/dL H mg/dL (70-100) Calcium 9.6 mg/dL mg/dL (8.5-10.4) Lipase 75 IU/L IU/L (23-300) Medications Given: Discontinued Medications Hydromorphone HCl (Dilaudid) 1 mg IVP EDNOW ONE Stop: 07/31/17 21:24 Last Admin: 07/31/17 21:32 Dose: 1 mg Hydromorphone HCl (Dilaudid) 1 mg IVP EDNOW ONE Stop: 07/31/17 21:59 Last Admin: 07/31/17 22:05 Dose: 1 mg Sodium Chloride (Ns) 1,000 mls @ 0 mls/hr IV EDNOW ONE; Wide Open PRN Reason: Protocol Stop: 07/31/17 21:24 Last Admin: 07/31/17 21:32 Dose: 1,000 mls Lorazepam (Ativan Injection) 1 mg IVP EDNOW ONE Stop: 07/31/17 21:59 Last Admin: 10/10/17 22:04 Dose: 1 mg Ondansetron HCl (Zofran) 4 mg IVP EDNOW ONE Stop: 07/31/17 21:24 Last Admin: 07/31/17 21:31 Dose: 4 mg Departure - Departure Disposition: Home, Routine, Self-Care Clinical Impression: Constipation Qualifiers: Constipation type: other constipation type Qualified Code(s): K59.09 - Other constipation Abdominal pain Qualifiers: Abdominal location: left lower quadrant Qualified Code(s): R10.32 - Left lower quadrant pain Condition: Good Instructions: Constipation (ED), Abdominal Pain (ED) Additional Instructions: Please take magnesium citrate as directed: Drink half of the bottle, and then wait 4 hours. If you do not have significant stool output, drink the other half of the bottle. Drink plenty of fluid. Avoid narcotics as they will cause constipation. Eat a high-fiber diet. Referrals: NONE *PRIMARY CARE P,. [Primary Care Provider] - As per Instructions
[2017-07-31 23:06] LABS: COLOR YELLOW; LEUKOCYTE ESTERASE,URINE NEGATIVE (NEGATIVE); NITRITE,URINE NEGATIVE (NEGATIVE)
[2017-07-31 23:16] LABS: MUCUS TRACE /lpf (NONE-1+)
[2017-08-01 00:35] VITALS: BP 139/102; PULSE 92; RESP 18; TEMP 97.7; O2SAT 94
== END 2017-08-01 00:33 | disposition home or self-care (01) ==
DX: K59.09 Other constipation (principal); E11.9 Type 2 diabetes mellitus without complications; E86.9 Volume depletion, unspecified; Z79.4 Long term (current) use of insulin; Z90.49 Acquired absence of other specified parts of digestive tract
CPT/HCPCS: 96374; J1170; J2060; J2405

== ENCOUNTER 2017-08-05 14:04 | Emergency (ER) | payer SELFPAY ==
[2017-08-05 14:21] VITALS: BP 145/104; PULSE 116; RESP 20; TEMP 97.7; O2SAT 98
--- NOTE | 2017-08-05 14:30 | EDPHY ---
H & P Stated Complaint: continued abd pain and now R lower back Time Seen by Provider: 08/05/17 14:30 - Personal History Current Tetanus/Diphtheria Vaccine: Yes Tetanus Vaccine Date: < 10 years - Medical/Surgical History Hx Asthma: No Hx Chronic Respiratory Disease: No Hx Diabetes: Yes Hx Cardiac Disease: No Hx Renal Disease: No Hx Cirrhosis: No Hx Alcoholism: No Hx HIV/AIDS: No Hx Splenectomy or Spleen Trauma: No Other PMH: depression, anxiety, DM 2, hemicolectomy - Social History Smoking Status: Never smoked Constitutional: Initial Vital Signs Temperature (C) 36.5 C 08/05/17 14:19 Heart Rate 116 H 08/05/17 14:19 Respiratory Rate 20 08/05/17 14:19 Blood Pressure 145/104 H 08/05/17 14:19 O2 Sat (%) 98 08/05/17 14:19 O2 Delivery Mode Room Air Allergies/Adverse Reactions: dicyclomine [From Bentyl] Allergy (Verified 07/31/17 20:11) fentanyl Allergy (Verified 07/31/17 20:11) ketamine Allergy (Verified 07/31/17 20:11) metoclopramide [From Reglan] Allergy (Verified 07/31/17 20:11) NSAIDS (Non-Steroidal Anti-Inflamma Allergy (Verified 07/31/17 20:11) Home Medications: Medication Instructions Recorded Insulin Aspart [novoLOG] 10 units SQ TIDMEAL 07/25/17 Insulin Glargine [Lantus 100 60 units SC HS 07/25/17 UNITS/ML (*)] QUEtiapine FUMARATE [Seroquel 100 100 mg PO BID 07/25/17 mg (*)] clonazePAM [Klonopin (*)] 0.5 mg PO TID PRN 07/25/17 Venlafaxine Xr [Effexor Xr 75MG 150 mg PO BID 07/26/17 (*)] Ondansetron Odt [Zofran Odt 4 mg 4 mg PO Q4 PRN #10 tab 08/05/17 (RX)] oxyCODONE IR [Oxycodone Ir (*)] 5 - 10 mg PO Q6 PRN #7 tab 08/05/17 Medical Decision Making ED Course/Re-evaluation: CHIEF COMPLAINT: Abdominal pain HISTORY OF PRESENT ILLNESS: The patient is a 51 y/o male returning for his 4th visit in 10 days complaining of persistent abdominal pain. He has a history of a hemicolectomy related to diverticulitis, diabetes, depression, and anxiety. He was admitted on 07/26/17 for the same symptoms and had a negative abdominal CT at that time. His constipation following that visit resolved with OTC treatments, but his pain remained. He complains currently of associated nausea, vomiting, and diarrhea. He is requesting pain management. REVIEW OF SYSTEMS: A 10 point review of systems was performed and is negative with the exception of the elements mentioned in the history of present illness. PHYSICAL EXAM: HR, BP, O2 Sat, RR. Temp noted General Appearance: Alert, well hydrated, appropriate, and non-toxic appearing. Head: Atraumatic without scalp tenderness or obvious injury Eyes: Pupils equal, round, reactive to light and accommodation, EOMI, no trauma , no injection. Nose: Atraumatic, no rhinorrhea, clear. Throat: Mucus membranes moist. Neck: Supple Respiratory: No retractions, no distress, no wheezes, and no accessory muscle use. Lungs are clear to auscultation bilaterally. Cardiovascular: Regular rate and rhythm, no murmurs, rubs, or gallops. Good capillary refill all extremities. Gastrointestinal: Abdomen is soft, nontender, non-distended, no masses, no rebound, no guarding, no peritoneal signs. Well-healed midline incision. Musculoskeletal: Normal active ROM of all extremities, atraumatic. Neurological: Alert, appropriate, and interactive. The patient has non-focal cranial nerves, motor, sensory, and cerebellar exam. Skin: No rashes, good turgor, no nodules on palpation. Past medical history: Diabetes, depression, anxiety, diverticulitis Past surgical history: Hemicolectomy, tonsillectomy, ventral hernia, appendectomy, vasectomy, left TKA, Achilles tendon repair Family history: noncontributory Social history: here on a book signing tour, [place] Prior medical records reviewed including admission 07/26/17 for the same symptoms. DIFFERENTIAL DIAGNOSIS: The differential diagnosis for the patient's abdominal pain included but was not limited to diverticulitis, appendicitis, cholecystitis, hernias, testicular torsion, gastritis, and urinary tract infection. MEDICAL DECISION MAKING: This is a 51 y/o male presenting with chronic abdominal pain. He's had extensive work up for this here over the last [address] imaging was negative. He was admitted primarily for pain control previously. My interaction with him today makes me suspicious for narcotic-seeking behavior in this patient. His abdomen is benign. There is no indication for further imaging today. I offered patient Toradol for pain, which he refused. Patient will be given a script for Zofran and OxyIR. Case management will be involved regarding future narcotic use in this ED with this patient. He is aware we cannot continue to provide scripts for opiates for chronic conditions. Return precautions and follow up instructions discussed. Departure - Departure Disposition: Home, Routine, Self-Care Clinical Impression: Chronic abdominal pain Condition: Good Instructions: Ondansetron (By mouth), Chronic Abdominal Pain (ED) Additional Instructions: 1. Take Zofran as prescribed for nausea and vomiting. 2. Use Tylenol and ibuprofen as directed on the packaging as needed for pain for the next few days. 3. Please be aware the ED cannot provide prescriptions for narcotics for chronic conditions. You need to follow up with your primary care provider if you require further pain management. Referrals: [facility],. [Clinic] - As per Instructions Prescriptions: Ondansetron Odt [Zofran Odt 4 mg (RX)] 4 mg PO Q4 PRN #10 tab PRN Reason: Nausea/Vomiting, Use 1st oxyCODONE IR [Oxycodone Ir (*)] 5 - 10 mg PO Q6 PRN #7 tab PRN Reason: Pain, Severe Report Scribed for: Pito Mejia Report Scribed by: Rebecca De La Paz Date of Report: 08/05/17 Time of Report: 15:01
[2017-08-05] MEDS ORDERED: KETOROLAC 30 MG/1 ML SDV IM ONE (15:01)
== END 2017-08-05 15:00 | disposition home or self-care (01) ==
DX: R10.9 Unspecified abdominal pain (principal); G89.29 Other chronic pain; E11.9 Type 2 diabetes mellitus without complications; Z79.4 Long term (current) use of insulin
CPT/HCPCS: J1885